=== PATIENT | female | born 1995 | race Caucasian/White ===

== ENCOUNTER 2023-11-07 08:27 | Outpatient (CLI) | payer OTHER ==
[2023-11-07 12:08] LABS: BASOPHILS % (AUTO) 0.4 %; EOSINOPHILS # (AUTO) 0.1 10^3/uL (0.0-0.7); EOSINOPHILS % (AUTO) 1.2 %; HCT - HEMATOCRIT 43.7 % (37.0-47.0); HGB - HEMOGLOBIN 14.1 g/dL (12.0-16.0); LYMPHOCYTES % (AUTO) 39.7 %; MEAN CORPUSCULAR HEMOGLOBIN 30.3 pg (27.0-31.0); MEAN CORPUSCULAR HGB CONC 32.3 g/dL (32.0-36.0); MEAN CORPUSCULAR VOLUME 93.8 fL (81.0-99.0); MEAN PLATELET VOLUME 11.1 fL (7.9-10.8); MONOCYTES # (AUTO) 0.3 10^3/uL (0.0-1.0); MONOCYTES % (AUTO) 5.4 %; NEUTROPHILS # (AUTO) 2.7 10^3/uL (1.5-6.6); NEUTROPHILS % (AUTO) 52.9 %; PLT - PLATELET COUNT 240 10^3/uL (130-450); RED BLOOD COUNT 4.66 10^6/uL (4.20-5.40); RED CELL DISTRIBUTION WIDTH 13.1 % (12.0-15.0)
[2023-11-07 12:29] LABS: ALBUMIN 4.3 g/dL (3.2-5.5); ALBUMIN/GLOBULIN RATIO 1.7 (1.0-2.2); ALKALINE PHOSPHATASE 39 IU/L (42-121); ALT ALANINE AMINOTRANSFERASE 16 IU/L (10-60); AST ASPARTATE AMINOTRANSFERASE 19 IU/L (10-42); BILIRUBIN,TOTAL 0.4 mg/dL (0.2-1.0); BUN - BLOOD UREA NITROGEN 10 mg/dL (6-20); CALCIUM 9.5 mg/dL (8.5-10.3); CARBON DIOXIDE - CO2 32 mmol/L (21-32); CHLORIDE 102 mmol/L (101-111); CHOL/HDL RATIO 2.9 (<4.4); CHOLESTEROL 199 mg/dL; CREATININE 0.6 mg/dL (0.6-1.3); GFR - MDRD 118 (>89); GLUCOSE 85 mg/dL (74-104); HDL CHOLESTEROL 68 mg/dL; LDL CHOLESTEROL,CALCULATED 105 mg/dL; LDL/HDL RATIO 1.5 (<4.4); POTASSIUM 4.1 mmol/L (3.5-4.5); SODIUM 138 mmol/L (135-145); TOTAL PROTEIN 6.9 g/dL (6.4-8.9); TRIGLYCERIDES 129 mg/dL; VLDL CHOLESTEROL 26 mg/dL
[2023-11-07 12:36] LABS: ESTIMATED AVERAGE GLUCOSE 85 mg/dL (70-100); HEMOGLOBIN A1c% 4.6 % (4.27-6.07)
[2023-11-07 12:39] LABS: THYROID STIMULATING HORMONE 2.11 uIU/mL (0.34-5.60)
== END 2023-11-07 08:28 | disposition home or self-care (01) ==
LOC: LAB.N 08:27
DX: Z00.00 Encounter for general adult medical examination without abnormal findings (principal)
CPT/HCPCS: 36415; 80053; 80061; 82306; 83036; 83721; 84443; 85025

== ENCOUNTER 2023-11-19 08:04 | Outpatient (CLI) | payer OTHER ==
--- NOTE | 2023-11-20 22:20 | Ultrasound Report ---
PROCEDURE: Abdomen Complete INDICATIONS: ABD PAIN TECHNIQUE: Ultrasound of the abdomen was obtained. COMPARISON: None. FINDINGS: Liver: Unremarkable hepatic echotexture without focal mass lesion Gallbladder: Sonolucent without cholelithiasis or gallbladder wall thickening. Common bile duct: 4.2 mm Pancreas: Visualized portions of the pancreas are within normal limits Spleen: Spleen is normal in size and homogeneous in echotexture. Kidneys: Kidneys are normal in size and echotexture. No hydronephrosis or renal calculi. No solid masses. Aorta: Visualized aorta is unremarkable without aneurysm. Iliacs: Proximal common iliac arteries are unremarkable. IVC: Intrahepatic inferior vena cava is patent. Other: No free abdominal fluid. IMPRESSION: Unremarkable ultrasound of the abdomen Reviewed by: Aaron Hirsch MD on 11/20/2023 9:18 PM [facility] Approved by: Aaron Hirsch MD on 11/20/2023 9:18 PM [facility] Station ID: [id number]
== END 2023-11-19 08:05 | disposition home or self-care (01) ==
LOC: DI 08:04
DX: K59.09 Other constipation (principal); R10.9 Unspecified abdominal pain

== ENCOUNTER 2023-12-06 10:38 | Outpatient (CLI) | payer OTHER ==
--- NOTE | 2023-12-06 14:30 | XRAY Report ---
PROCEDURE: Chest 2V INDICATIONS: PRE-OP TECHNIQUE: 2 views of the chest were acquired. COMPARISON: 09/25/2023. FINDINGS: Surgical changes and devices: None. Lungs and pleura: No pleural effusions or pneumothorax. Lungs are clear. Mediastinum: Mediastinal contours appear normal. Heart size is normal. Bones and chest wall: No suspicious bony lesions. Overlying soft tissues appear unremarkable. IMPRESSION: No acute cardiopulmonary process. Reviewed by: Calvin Wade MD on 12/06/2023 2:28 PM PDT Approved by: Calvin Wade MD on 12/06/2023 2:28 PM PDT Station ID: [id number]
== END 2023-12-06 10:39 | disposition home or self-care (01) ==
LOC: DI.N 10:38
DX: Z01.818 Encounter for other preprocedural examination (principal)

== ENCOUNTER 2025-02-28 01:25 | Inpatient (IN) ==
[2025-02-28 02:08] LABS: RUPTURE OF MEMBRANES PLUS POSITIVE (NEGATIVE)
[2025-02-28] MEDS ORDERED: ceFAZolin (2G) 2 GM in SODIUM CHLORIDE 0.9% MINIBAG 100 ML IV ONE (02:45)
[2025-02-28] MEDS ORDERED: AZITHROMYCIN INJ 500 MG in SODIUM CHLORIDE 0.9% 250 ML IV ONE (02:45)
--- NOTE | 2025-02-28 02:56 | HISTORY & PHYSICAL EXAMINATION ---
Admit History Visit Reason Visit Reason: Membranes rupture : 4 Parity: 0 Care: positive [facility] Risk/History: positive None Smoking Status: Never smoker Mother's Labs Mother's Blood Type: positive A Mother's RH: positive Positive GBS: positive Group B Step Negative Rubella Status: positive Immune Other Maternal History Other Maternal History: Fabiana is a 29 yo , who presented to [facility] triage early this morning with leakage of clear fluid since 2025, soaking through pads. Nitrazine and ROM Plus were positive, confirming rupture. She is known to be complete breech and has declined version. She has also had one mild-range blood pressure, not yet meeting criteria for gestational HTN or preE. Triage blood pressure was 140/95 with repeat reading still with systolic > 90. She has had no headache, visual changes, or abdominal pain. She also denies contractions, vaginal bleeding, or decreased movements. Specific Issues/Plans LMP: 06/12/2024 KHANH by LMP: 03/19/2024, sure, charted, menses irregular but logged dates of intercourse. US: bedside 08/01/24 6w3d KHANH 03/24/25 US: 08/25/24 9w6d KHANH 03/24/25 Final KHANH: 03/19/25 excessive weight gain 36.5 pounds at 28 weeks. 53 pounds at 35 wks. Says she is eating well and exercising. abnormal glucose 145. will do CGM profiling instead of 3 hr declines vaccines. Breech at 34+5 wks. Discussed ECV. Reassess at 36 wks. thinking she wants primary c section 03/13 or 03/17. Pre- Weight: 183 BMI: 31 Blood type: A+ Antibody Screen: neg CBC: H/H/PLT 12.2/36.7 263 RUB: immune VZV: immune HBsAg: neg HepC: NR RPR: NR HIV: NR Flu: declined Covid: declined PAP: 2023 normal GC/CT: neg HSV: denies in self and partner Genetic testing: NIPT- negative AFP- neg Early Glucola: FLU AND COVID- DECLINED FAS: Placenta: posterior w/o previa Cord: 3VC MARLI: wnl EFW: 396g, 16% 50gm OGCT: 145 3HR GTT: WEARING CGM and pretty normal once she got the hang of it. TDAP: declined Breast Pump: given 12/30 RSV: DECLINED Antibody screen: CBC:H/H/PLT12.3/37.5/256 RPR: NR GBS: negative Delivery plan: MOD: PP BC: Considering vasectomy; declines hormonal control, fears it may have contributed to PCOS HPI Current : Vital Signs Temperature 36.4 C L 02/28/25 01:37 Pulse Rate 99 02/28/25 01:37 Respiratory Rate 18 02/28/25 01:37 Blood Pressure 140/95 H 02/28/25 01:37 Meds/Allgy Home Medications Ambulatory Orders Medication Instructions Recorded Confirmed vitamins no.154-ferrous 1 tab PO .daily #90 t abs 07/22/24 02/24/25 fumarate 27 mg-folic acid 1 mg tablet cetirizine 10 mg tablet 10 mg PO QDAY PRN allergy sy mptoms 11/04/24 02/24/25 #90 tabs fluticasone propionate 50 2 spray intranasal QDAY PRN 11/04/24 02/24/25 mcg/actuation nasal allergy symptoms #1 ea spray,suspension (Flonase Allergy Relief) Allergies Allergies Allergy/AdvReac Type Severity Reaction Status Date / Time No Known Drug Allergies Allergy Verified 02/24/25 15:09 [facility] Active Problems All Active Problems (Updated 02/28/25 @ 03:33 by Leta Valles MD) 37 weeks gestation of (Acute) Rupture of membranes with delay of delivery (Acute) Gestational hypertension affecting first (Acute) Elevated blood pressure affecting , antepartum (Acute) Excessive weight gain during in third trimester (Acute) Glucose intolerance (impaired glucose tolerance) (Acute) Complete breech presentation (Acute) Environmental allergies (Acute) Back pain with left-sided sciatica (Acute) Supervision of normal (Acute) Obesity (BMI 30.0-34.9) (Acute) Seasonal allergies (Acute) PCOS (polycystic ovarian syndrome) (Acute) Medical History Medical History (Updated 02/28/25 @ 03:33 by Leta Valles MD) History of multiple miscarriages Acid reflux Family history of breast cancer Migraines Asthma IBS (irritable bowel syndrome) Anxiety Surgical History Surgical History (Updated 08/18/24 @ 13:43 by Kathryn Choe RN) H/O breast augmentation History of liposuction of abdomen 2019 History of repair of ACL left ACL 2019 Family History Family History (Updated 08/18/24 @ 13:44 by Kathryn Choe RN) Mother Breast cancer High blood pressure Arthritis Maternal grandmother Breast cancer Diabetes Father High blood pressure Parkinsons disease Paternal grandmother Diabetes Other TIA (transient ischemic attack) Social History Social History (Updated 12/15/24 @ 15:21 by Wanda Hadley MD) Smoking Status: Never smoker Second hand tobacco smoke exposure: No Do you dip or chew tobacco?: No Do you vape?: No Living arrangement: At home Marital Status: Living Condition: With spouse/s.o. Support Person: Yes Physical Activity: Walking Level: Independent Do you feel safe in your home environment?: Yes History of physical, verbal, emotional, or financial abuse?: No ETOH Use: None Substance Use: denies use Review of Systems Status of ROS: 10 or more systems reviewed and unremarkable except as noted in history and below Physical Abdominal Exam Vital Signs: Temp Pulse Resp BP 36.4 C L 99 18 140/95 H 02/28/25 01:37 02/28/25 01:37 02/28/25 01:37 02/28/25 01:37 General: Awake and alert, no acute distress Lungs: Clear to auscultation bilaterally Heart: Reg rate, rhythm Abd: Gravid, nontender Cvx: Not examined Ext: Warm and well-perfused, DTR's 2+ with 1 beat clonus, edema 1+ bilateral Contraction Frequency (min/apart): Absent Monitoring Heart Rate Baseline: 135-140 Strip Review: positive Category I (Rare variable decels noted; + accels; mod variability - overall cat 1) Presentation Presentation: positive Breech Vaginal Exam Membranes: positive Membranes ruptured Speculum Exam Speculum Exam Performed: positive No Findings: positive Gross leak, Nitrazine and Other (ROM Plus positive) Other Notes Labor Progress Note/Additional Text: Limited bedside US performed, confirming presentation still breech Plan for Labor Plan For Labor I expect patient to be DC'd or transferred within 96 hours.: Yes Conclusion/Plan Problem List (1) Rupture of membranes with delay of delivery: Plan: Assessment: (1) Term rupture of membranes (clear) without onset of labor (2) Complete breech presentation (3) Gestational HTN, currently without severe features (4) at 37+2 weeks (5) Reassuring status with cat 1 FHT Plan: - Admit to [facility]BP for delivery via 1' - Plan for approx 0730. Team notified. Will proceed to delivery sooner if entering labor, worsening BP's, or EFM concerns. - Obtain preop CBC, CMP, and type and screen - plan and delivery preference reviewed: Pt desires delayed cord clamping, declines meds, and wishes to keep placenta - Discussed procedure, expectations, risks, and postop care. Risks discussed include, but not limited to, bleeding, infection, injury to internal organs, and anesthesia risks. Discussed possible need for blood transfusion if heavy bleeding or symptomatic anemia occurs. Consent form reviewed and signed. - Preop antibiotics: Ancef 2 mg, Azithro 500 mg IV - VTE prophy: SCDs in OR and (2) Complete breech presentation: Qualifiers: Fetus number: single or unspecified fetus Qualified Code(s): O32.1XX0 - Maternal care for breech presentation, not applicable or unspecified (3) Gestational hypertension affecting first : (4) 37 weeks gestation of : Lab Results Lab results reviewed: Yes
[2025-02-28 03:58] LABS: HCT - HEMATOCRIT 36.0 % (37.0-47.0); HGB - HEMOGLOBIN 12.5 g/dL (12.0-16.0); MEAN PLATELET VOLUME 11.2 fL (7.9-10.8); NRBC ABSOLUTE COUNT (AUTO) 0.00 x10^3/uL; NUCLEATED RED BLOOD CELLS AUTO 0.0 /100WBC; PLT - PLATELET COUNT 216 10^3/uL (130-450); RED CELL DISTRIBUTION WIDTH 13.1 % (12.0-15.0)
[2025-02-28 04:14] LABS: ALT ALANINE AMINOTRANSFERASE 6.0 IU/L (10-60); AST ASPARTATE AMINOTRANSFERASE 11.0 IU/L (10-42); BUN - BLOOD UREA NITROGEN 11.0 mg/dL (6-20); CARBON DIOXIDE - CO2 19.0 mmol/L (21-32); CREATININE 0.6 mg/dL (0.6-1.3); GFR - MDRD 117.0 (>89)
[2025-02-28] MEDS: LACTATED RINGERS 1,000 ML IV SCH (04:20)
[2025-02-28] MEDS ORDERED: CITRIC ACID/SODIUM CITRATE 15 ML UDC PO ONE (06:31)
[2025-02-28] MEDS: CITRIC ACID/SODIUM CITRATE 15 ML UDC PO ONE (07:07)
[2025-02-28] MEDS ORDERED: fentaNYL 100 MCG/2 ML VIAL ONE (07:08)
[2025-02-28] MEDS ORDERED: MORPHINE PF 5 MG/10 ML VIAL ONE (07:08)
[2025-02-28] MEDS ORDERED: CARBOPROST TROMETHAMINE 250 MCG/ML VIAL IM ONE (07:11)
[2025-02-28] MEDS ORDERED: METHYLERGONOVINE 0.2 MG/ML VIAL ONE (07:11)
[2025-02-28] MEDS ORDERED: PHENYLEPHRINE 10 MG/ML VIAL ONE (07:12)
[2025-02-28] MEDS ORDERED: fentaNYL 100 MCG/2 ML VIAL IT ONE (07:33)
[2025-02-28] MEDS ORDERED: MORPHINE PF 5 MG/10 ML VIAL IT ONE (07:33)
[2025-02-28] MEDS ORDERED: OXYTOCIN 10 UNIT/ML VIAL ONE (08:16)
[2025-02-28] MEDS ORDERED: NALOXONE 0.4 MG/ML VIAL IVP PRN ×2 (08:30→08:59)
[2025-02-28] MEDS ORDERED: HYDROmorphone 0.5 MG/0.5 ML SYRINGE IVP PRN (08:30)
[2025-02-28] MEDS ORDERED: ATROPINE ABBOJECT 1 MG/10 ML SYRINGE IVP PRN (08:30)
[2025-02-28] MEDS ORDERED: fentaNYL 100 MCG/2 ML VIAL IVP PRN (08:30)
[2025-02-28] MEDS ORDERED: ONDANSETRON 4 MG/2 ML VIAL IVP PRN (08:30)
[2025-02-28] MEDS ORDERED: MORPHINE 2 MG/ML CARPUJECT IVP PRN (08:30)
--- NOTE | 2025-02-28 08:30 | ANESTHESIA PROCEDURE NOTE ---
Pre-Anesthesia VS, & Labs Diagnosis Surgical Diagnosis:: Breech presentation, ruptured membranes Procedure Procedure: primary c/s Vitals Vital Signs: Temp Pulse Resp BP Pulse Ox 36.9 C 68 16 146/87 H 98 02/28/25 04:44 02/28/25 04:44 02/28/25 04:44 02/28/25 04:44 02/28/25 04:44 NPO NPO: >8 hours Is Patient ?: Yes Lab Results Current Lab Results: Laboratory Tests 02/28/25 03:50: WBC 8.9, RBC 4.01 L, Hgb 12.5, Hct 36.0 L, MCV 89.8, MCH 31.2 H, MCHC 34.7, RDW 13.1, Plt Count 216, MPV 11.2 H, Neut # (Auto) 5.7, Lymph # (Auto) 2.5, [place] # (Auto) 0.5, Eos # (Auto) 0.1, Baso # (Auto) 0.0, Absolute Nucleated RBC 0.00, Nucleated RBC % 0.0, Sodium 136, Potassium 4.0, Chloride 109, Carbon Dioxide 19 L, Anion Gap 8.0, BUN 11, Creatinine 0.6, Estimated GFR (MDRD) 117, Glucose 91, Calcium 9.0, Total Bilirubin 0.2, AST 11, ALT 6 L, A lkaline Phosphatase 230 H, Total Protein 5.7 L, Albumin 3.4, Globulin 2.3, Albumin/Globulin Ratio 1.5, Blood Type A POSITIVE, Antibody Screen NEGATIVE Lab results reviewed: Yes 02/28/25 03:50 02/28/25 03:50 Meds/Allgy Home Medications Ambulatory Orders Medication Instructions Recorded Confirmed vitamins no.154-ferrous 1 tab PO .daily #90 t abs 07/22/24 02/24/25 fumarate 27 mg-folic acid 1 mg tablet cetirizine 10 mg tablet 10 mg PO QDAY PRN allergy sy mptoms 11/04/24 02/24/25 #90 tabs fluticasone propionate 50 2 spray intranasal QDAY PRN 11/04/24 02/24/25 mcg/actuation nasal allergy symptoms #1 ea spray,suspension (Flonase Allergy Relief) Allergies Allergies Allergy/AdvReac Type Severity Reaction Status Date / Time No Known Drug Allergies Allergy Verified 02/24/25 15:09 [facility] Active Problems All Active Problems 37 weeks gestation of (Acute) Rupture of membranes with delay of delivery (Acute) Gestational hypertension affecting first (Acute) Elevated blood pressure affecting , antepartum (Acute) Excessive weight gain during in third trimester (Acute) Glucose intolerance (impaired glucose tolerance) (Acute) Complete breech presentation (Acute) Environmental allergies (Acute) Back pain with left-sided sciatica (Acute) Supervision of normal (Acute) Obesity (BMI 30.0-34.9) (Acute) Seasonal allergies (Acute) PCOS (polycystic ovarian syndrome) (Acute) Medical History Medical History History of multiple miscarriages Acid reflux Family history of breast cancer Migraines Asthma IBS (irritable bowel syndrome) Anxiety Surgical History Surgical History H/O breast augmentation History of liposuction of abdomen 2019 History of repair of ACL left ACL 2019 Family History Family History (Updated 08/18/24 @ 13:44 by Kathryn Choe RN) Mother Breast cancer High blood pressure Arthritis Maternal grandmother Breast cancer Diabetes Father High blood pressure Parkinsons disease Paternal grandmother Diabetes Other TIA (transient ischemic attack) Social History Social History (Updated 12/15/24 @ 15:21 by Wanda Hadley MD) Smoking Status: Never smoker Second hand tobacco smoke exposure: No Do you dip or chew tobacco?: No Do you vape?: No Living arrangement: At home Marital Status: Living Condition: With spouse/s.o. Support Person: Yes Physical Activity: Walking Level: Independent Do you feel safe in your home environment?: Yes History of physical, verbal, emotional, or financial abuse?: No ETOH Use: None Substance Use: denies use POLST POLST CPR Status: Attempt Resuscitation (CPR) Level of Medical Intervention: Full Treatment Anesthesia Exam (Expanded) Exam General: Alert, Oriented x3 and Cooperative Dental: WNL Mouth Openin Fingerbreadth Neck Mobility: Normal Mallampati classification: II Thyromental Distance: 4-6 cm Exam Exam Vital Signs: Vital Signs x48h Temp Pulse Pulse Resp BP BP Pulse Ox 02/28/25 04:44 36.9 C 68 16 146/87 H 98 02/28/25 02:20 135/97 H 02/28/25 01:37 36.4 C L 99 18 140/95 H Plan Plan Anesthesia Type: Spinal Consent for Procedure(s) Verified and Reviewed: Yes Code Status: Attempt Resuscitation ASA Classification ASA classification: 2-Mild systemic disease Is this case an emergency?: No
[2025-02-28] MEDS ORDERED: KETOROLAC 30 MG/ML VIAL ONE (08:32)
[2025-02-28] MEDS ORDERED: SIMETHICONE CHEW 80 MG TABLET PO PRN (08:59)
[2025-02-28] MEDS ORDERED: hydrALAZINE INJ 20 MG/ML VIAL IVP PRN ×2 (08:59)
[2025-02-28] MEDS ORDERED: LABETALOL 20 MG/4 ML SYRINGE IVP PRN ×3 (08:59)
[2025-02-28] MEDS ORDERED: OXYTOCIN/SODIUM CHLORIDE 500 ML IV PRN (08:59)
--- NOTE | 2025-02-28 08:59 | PHARMACY PROGRESS NOTE ---
Best Possible Medication History Admit Date and Time: 02/28/25 0245 Home Medications Medication Instructions Recorded Confirmed Type cetirizine 10 mg tablet 10 mg PO QDAY PRN allergy sy mptoms 11/04/24 02/28/25 Rx #90 tabs fluticasone propionate 50 2 spray intranasal QDAY PRN 11/04/24 02/28/25 Rx mcg/actuation nasal allergy symptoms #1 ea spray,suspension (Flonase Allergy Relief) vitamins no.154-ferrous 1 tab PO DAILY 02/28/25 History fumarate 27 mg-folic acid 1 mg tablet Processed by: Pharmacy Medications reviewed in ED?: No Medication History completed: Yes [facility] Statement: As the person ultimately responsible for medication therapy, providers are able to order a medication from an existing home medication list in [facility] via the "Reconcile Routine" prior to Confirmation of that medication by linux support engineer. Such practice is discouraged except when the physician, in their clinical judgment, deems that a medical need exists for a medication without regard to previous use.
[2025-02-28] MEDS ORDERED: LACTATED RINGERS 1,000 ML IV SCH (09:00)
--- NOTE | 2025-02-28 09:05 | OPERATIVE REPORT ---
Operative Report General Admit Date: 02/28/25 Procedure Data: Operation Date: 02/28/25 07:00 Proposed Procedures p Section(Not Applicable) - Leta Valles MD Anesthesia Type Spinal Case Times Into Recovery: 02/28/25 08:58 Other Other Information/Narrative: Preoperative Diagnosis: - Complete breech presentation - Rupture of membranes prior to labor onset - Gestational hypertension - at 37 weeks gestation Postoperative Diagnosis: - Same as above now s/p primary low transverse Procedure: Primary low-transverse with two-layer hysterotomy closure Surgeon: Dr. Leta Valles Parts Consultant: Jocelyn Larry CNM Anesthesia: Spinal w/ Duramorph Qualitative Blood Loss: 330 ml IV Fluids: 900 ml Urine Output: 25 ml Medications: Pitocin bolus Specimen: None Indications: Patient is a 29 yo at 37+2 wks who presented to [facility] with rupture of membranes. Baby was known to be complete breech, and she declined version attempt. Breech was confirmed on the day of admission, and delivery recommended at this time. Additionally, she had had a single elevlated blood pr essure as an outpatient. Triage and admission blood pressure were elevated consistent with a diagnosis of gestational HTN. She had no severe features. Surgical procedure, expectations, and risks were discussed, and surgical consent form reviewed and signed. Findings: - No adhesions present - Viable male infant delivered from complete breech presentation. No nuchal cord was present. APGARS were 7 at one minute and 9 at five minutes. weight was 3175 gm. - Placenta was expressed, and the uterine cavity swept. The placenta appeared intact and was given to the parents per their request. - Tubes, ovaries, and uterus were overall normal in appearance - Uterine tone was good after start of Pitocin. Operative Technique: The patient was taken to the operating room where epidural was already in place and had been bolused to surgical level by Anesthesia. Berger catheter had already been inserted. The abdomen was prepped and draped in sterile fashion, and surgical Time Out performed. After confirming adequate anesthesia with an Allis clamp, a Pfannenstiel incision was created sharply 3 cm above the suprapubic bone. The subcutaneous tissue was incised, then the fascia was sharply incised at the midline and incision extended laterally bluntly. The superior rectus fascia was grasped with Luke clamps at the midline and tented up while the rectus muscle was d issected off posteriorly bluntly and with cautery. The same was then performed at the inferior rectus fascia, using blunt and sharp technique. The muscles were bluntly . A clear window of the anterior peritoneum was identified and entered bluntly. This incision was then extended with gentle stretch. Donny retractor was placed. A bladder flap was created, then the lower uterine segment was incised in low transverse fashion. The incision was bluntly enlarged in a cranial-caudal direction. Clear amniotic fluid was noted. The infants feet were grasped and delivered through the incision. The sacrum was rotated to anterior. Once that abdomen was delivered, the baby was rotated to sweep the arms across the chest. The head then delivered with additional uterine fundus pressure and head flexion ([id number] and gentle pressure at the occiput). The baby had initial poor tone and respiratory effort. He was dried and stimulated, and tone/effort improved. Umbilical cord milking was performed, then the cord clamped and cut at 1 minute, and baby taken to the warmer. There, he continued to responded well to basic resuscitative measures. Cord blood was obtained, then the placenta delivered by expression and uterine massage. Uterine tone was addressed with medications as noted above. The uterus was repaired in situ: the hysterotomy was closed with a running, locked suture of 0 Chromic followed by an imbricating suture of 0 Chromic. A figure of eight suture was placed at the midline to achieve hemostasis. The peritoneal gutters were wiped, and the uterine incision re-examined and noted to be hemostatic. The peritoneum and muscles were reapproximated with running non-locked suture of 2-0 Vicryl. The rectus muscle was then examined and hemostatic. The rectus fascia was closed with a running non-locked suture of 0 Vicryl. The subcutaneous tissue was irrigated then reapproximated with interrupted 2-0 Vicryl. The skin was then closed in a subcuticular fashion using 4-0 Monocryl. Mastisol, steri-strips, and dressing were then applied. Sponge, lap, and needle count were completed and correct. The patient tolerated the procedure well, overall. She was subsequently moved to the recovery room in stable condition. Parts Consultant Attestation: In this non-[facility], a assistant store manager (named above) was needed to perform assistant surveyor duties. The multimedia assistant was critical with retraction of tissue, cutting suture, gently stretching the peritoneum and abdominal wall, applying pressure on the upper abdomen and uterus to deliver the baby, performing initial resuscitative steps for the baby on the maternal abdomen, and assisting with closure of the surgical layers and skin.
[2025-02-28] MEDS: ACETAMINOPHEN 500 MG TABLET PO SCH (11:13)
[2025-02-28] MEDS: DOCUSATE SODIUM 100 MG CAPSULE PO SCH (11:14)
--- NOTE | 2025-02-28 12:19 | ANESTHESIA POST OP EVALUATION ---
Anesthesia Post Eval Post Anesthesia Eval Vitals: Last Vital Signs Temp 36.9 C 02/28/25 11:00 Pulse 82 02/28/25 11:00 Resp 17 02/28/25 11:00 BP 126/88 02/28/25 11:00 Pulse Ox 98 02/28/25 11:00 CV Function Including HR & BP: Stable Pain Control: Satisfactory Nausea & Vomiting: Negative Mental Status: Baseline Respiratory Status: Airway Patent Hydration Status: Satisfactory Anesthesia Complications: None
[2025-02-28] MEDS ORDERED: NALBUPHINE 10 MG/ML AMP IVP PRN (12:30)
[2025-02-28] MEDS: KETOROLAC 30 MG/ML VIAL IVP SCH (15:00)
[2025-03-01 05:36] LABS: HCT - HEMATOCRIT 30.1 % (37.0-47.0); HGB - HEMOGLOBIN 10.4 g/dL (12.0-16.0); MEAN PLATELET VOLUME 10.9 fL (7.9-10.8); PLT - PLATELET COUNT 172.0 10^3/uL (130-450); RED CELL DISTRIBUTION WIDTH 13.5 % (12.0-15.0)
[2025-03-01 05:48] LABS: ALT ALANINE AMINOTRANSFERASE 5.0 IU/L (10-60); AST ASPARTATE AMINOTRANSFERASE 14.0 IU/L (10-42); BUN - BLOOD UREA NITROGEN 12.0 mg/dL (6-20); CARBON DIOXIDE - CO2 23.0 mmol/L (21-32); CREATININE 0.7 mg/dL (0.6-1.3); GFR - MDRD 98.0 (>89)
[2025-03-01] MEDS: IBUPROFEN 600 MG TABLET PO SCH (11:01)
[2025-03-01] MEDS: CETIRIZINE 10 MG TABLET PO SCH (17:31)
[2025-03-01] MEDS: oxyCODONE 5 MG TABLET PO PRN (19:50)
--- NOTE | 2025-03-01 21:37 | PROVIDER PROGRESS NOTE ---
Subjective Prog Note Date Prog Note Date: 03/01/25 Prog Note Time: 15:30 Subjective Pt reports feeling: Improved Subjective: POD #1 s/p uncomplicated primary for breech - Patient is feeling well. She notes minimal increase in discomfort as Duramorph has worn off. She has been up and ambulating, tolerating a regular diet, passing flatus, voiding freely, and controlling pain with oral pain meds. Lochia has decreased. Her Rg is at the bedside. She is trying to breastfeed and is also pumping to help consolidate colostrum for him. She is starting to get a sinus headache and requests start of cetirizine, which she usually takes to help manage her allergies. Current Medications Current Medications Current Medications: Current Medications Generic Name Dose Route Start Last Admin Trade Name Freq PRN Reason Stop Dose Admin Acetaminophen 1,000 mg 02/28/25 09:00 03/01/25 13:28 Acetaminophen 500 Mg Tablet PO 1,000 mg Q8H BERNA Administration Cetirizine HCl 10 mg 03/01/25 16:00 03/01/25 17:31 Cetirizine 10 Mg Tablet PO 10 mg DAILY BERNA Administration Docusate Sodium 200 mg 02/28/25 09:00 03/01/25 11:01 Docusate Sodium 100 Mg Capsule PO 200 mg BID BERNA Administration Hydralazine HCl 10 mg 02/28/25 08:59 Hydralazine Inj 20 Mg/Ml Vial IVP .ONCE PRN SBP> or= 160 OR DBP> or= 110 Protocol Hydralazine HCl 5 - 20 mg 02/28/25 08:59 Hydralazine Inj 20 Mg/Ml Vial IVP Q20M PRN SBP> or= 160 OR DBP> or= 110 Protocol Oxytocin/Sodium Chloride 500 mls @ 999 mls/hr 02/28/25 08:59 Pitocin/Sodium Chloride IV PRN PRN POST- HEMORR PREVENTION Protocol 999 MILLIUNIT/MIN Ibuprofen 600 mg 03/01/25 09:00 03/01/25 17:28 Ibuprofen 600 Mg Tablet PO 600 mg Q6H BERNA Administration Labetalol HCl 20 - 40 mg 02/28/25 08:59 Labetalol 20 Mg/4 Ml Syringe IVP Q10M PRN SBP> or= 160 OR DBP> or= 110 Protocol Labetalol HCl 20 mg 02/28/25 08:59 Labetalol 20 Mg/4 Ml Syringe IVP .ONCE PRN SBP> or= 160 OR DBP> or= 110 Protocol Labetalol HCl 20 - 80 mg 02/28/25 08:59 Labetalol 20 Mg/4 Ml Syringe IVP Q10M PRN SBP> or= 160 OR DBP> or= 110 Protocol Naloxone HCl 0.4 mg 02/28/25 08:59 Naloxone 0.4 Mg/Ml Vial IVP .ONCE PRN Opioid overdose Nifedipine 10 - 20 mg 02/28/25 08:59 Nifedipine 10 Mg Capsule PO Q20M PRN SBP> or= 160 OR DBP> or= 110 Protocol Oxycodone HCl 5 mg 02/28/25 08:59 03/01/25 19:50 Oxycodone 5 Mg Tablet PO 5 mg Q4HR PRN Administration Severe Pain 6 -10 Simethicone 80 mg 02/28/25 08:59 Simethicone Chew 80 Mg Tablet PO TID PRN Gas Objective Vital Signs/Intake & Output Reviewed Vital Signs: Yes Vital Signs: Vital Signs x48h Temp Pulse Resp BP Pulse Ox 03/01/25 18:30 37 C 90 16 121/74 99 BPs have been normal since delivery. No severe HTN since admission. Intake & Output: Intake & Output 02/26/25 02/27/25 02/28/25 03/01/25 23:59 23:59 23:59 23:59 Intake Total 900 / 900 Output Total 1295 / 1295 940 / 940 Balance -395 / -395 -940 / -940 Weight (kg) 106.594 kg General: Awake and alert; no acute distress Lungs: Clear to ausculation bilaterally. No wheezes or crackles. Heart: Reg rate and rhythm Abd: Rare bowel sounds present, appropriately tender to palpation. Inc: Dressing removed; skin edges approximating well; steri-strips dry and intact. Ext: Warm and well-perfused, 2+ edema Lab Results 03/01/25 05:21 03/01/25 05:21 Other Labs: Lab Results x24hrs 03/01/25 Range/Units 05:21 WBC 8.1 (4.8-10.8) x10^3/uL RBC 3.29 L (4.20-5.40) 10^6/uL Hgb 10.4 L (12.0-16.0) g/dL Hct 30.1 L (37.0-47.0) % MCV 91.5 (81.0-99.0) fL MCH 31.6 H (27.0-31.0) pg MCHC 34.6 (32.0-36.0) g/dL RDW 13.5 (12.0-15.0) % Plt Count 172 (130-450) 10^3/uL MPV 10.9 H (7.9-10.8) fL Sodium 133 L (135-145) mmol/L Potassium 4.4 (3.5-4.5) mmol/L Chloride 105 (101-111) mmol/L Carbon Dioxide 23 (21-32) mmol/L Anion Gap 5.0 L (6-13) BUN 12 (6-20) mg/dL Creatinine 0.7 (0.6-1.3) mg/dL Estimated GFR (MDRD) 98 (>89) Glucose 80 (74-104) mg/dL Calcium 8.6 (8.5-10.3) mg/dL Total Bilirubin 0.3 (0.2-1.0) mg/dL AST 14 (10-42) IU/L ALT 5 L (10-60) IU/L Alkaline Phosphatase 165 H (42-121) IU/L Total Protein 4.8 L (6.4-8.9) g/dL Albumin 3.0 L (3.2-5.5) g/dL Globulin 1.8 L (2.1-4.2) g/dL Albumin/Globulin Ratio 1.7 (1.0-2.2) Assessment/Plan Problem List (1) care following delivery: Impression: POD #1 s/p 1' LTCS for breech after presenting at 37+2 wks with rupture of membranes as well as new dx of gestational HTN. Doing well. - Cont routine postop care: encourage ambulation and IS use. - Cont with scheduled tylenol/motring + oxycodone for pain. - Cont support. - Discussed anticipated discharge home tomorrow. Briefly reviewed discharge precautions and limitations. (2) Gestational hypertension affecting first : Impression: Normotensive since delivery, and preE labs nml this normal. No indication for start of antihypertensive at this time.
[2025-03-02 02:30] VITALS: O2SAT 98
--- NOTE | 2025-03-02 10:30 | Discharge Summary ---
Discharge Summary Admit Date: 02/28/25 Discharge Date: 03/02/25 Discharging Provider: Valeriy Vanessa MD DIAGNOSES Admission Diagnoses: 37 weeks gestation Prelabor rupture of membranes Breech presentation Gestational hypertension Discharge Diagnoses with Status of Each Condition: Same Delivery of live vaughn Status post primary low-transverse section HPI History of Present Illness: Subjective Patient doing well. Lochia appropriate. Denies heavy bleeding. Ambulating. Pelvic and abdominal pain well-controlled. Tolerating oral intake. Diet: Regular. Voiding without difficulty. Passing flatus. Patient is bonding with baby in room Breast feeding going well. Denies feeling lightheaded, dizzy or excessively fatigued. Objective General: Alert, oriented, no apparent distress. Cardiovascular: Regular rate. Regular rhythm. Lungs: No increased work of breathing. Abdomen: Uterus firm. Below umbilicus. No guarding or rebound. Extremities: No pain on palpation. No cords palpated. Distal pulses intact. Incision: Clean, dry, and intact. HOSPITAL COURSE Hospital Course: Patient is admitted at 37 weeks gestation for rupture of membranes at term with breech presentation. She was counseled on section given prophylactic antibiotics. section was uncomplicated and course was uneventful. She was desiring to go home on postoperative day 2. She and were discharged together. Patient was counseled on postoperative pain, care, depression prior to discharge. ALLERGIES Allergies Allergy/AdvReac Type Severity Reaction Status Date / Time No Known Drug Allergies Allergy Verified 02/24/25 15:09 MEDICATIONS Ambulatory Orders Medication Instructions Recorded Confirmed cetirizine 10 mg tablet 10 mg PO QDAY PRN allergy sy mptoms 11/04/24 02/28/25 #90 tabs fluticasone propionate 50 2 spray intranasal QDAY PRN 11/04/24 02/28/25 mcg/actuation nasal allergy symptoms #1 ea spray,suspension (Flonase Allergy Relief) vitamins no.154-ferrous 1 tab PO DAILY 02/28/25 fumarate 27 mg-folic acid 1 mg tablet ibuprofen 600 mg tablet 600 mg PO Q6H PRN Pain #30 t abs 03/02/25 oxycodone 5 mg tablet 5 mg PO Q4H PRN Severe Pain #12 03/02/25 tabs PHYSICAL EXAM AT DISCHARGE Vital Signs: Vital Signs x48h Temp Pulse BP 12/22/25 09:45 37.0 C 95 124/76 03/02/25 06:22 37.0 C 91 113/64 LABS 03/01/25 05:21 03/01/25 05:21 FOLLOW UP Follow Up: Follow-up with [facility] in 1 week TIME SPENT Time Spent in Discharge (Minutes): 30 Discharge Plan Discharge Patient Disposition: Home, Self Care Prescriptions: New ibuprofen 600 mg tablet 600 mg PO Q6H PRN (Reason: Pain) Qty: 30 0RF oxycodone 5 mg tablet 5 mg PO Q4H PRN (Reason: Severe Pain) Qty: 12 0RF Continued fluticasone propionate [Flonase Allergy Relief] 50 mcg/actuation spray,suspension 2 spray intranasal QDAY PRN (Reason: allergy symptoms) Qty: 1 12RF Rx Instructions: administer 2 sprays into each nostril once daily as needed cetirizine 10 mg tablet 10 mg PO QDAY PRN (Reason: allergy symptoms) Qty: 90 4RF PNV no.154-iron fumarate-folic 27 mg iron- 1 mg tablet 1 tab PO DAILY Activity Restrictions: Additional Comments Diet: Regular Print Language: Sami Patient Instructions: Depression, Section Dc Follow-up Care: Leta Valles MD [Provider Admit Priv/Credential, Obstetrics/Gynecology] Tsering Nunez ARNP [Primary Care Provider, Family Practice] Vitals documented within 30 minutes of discharge?: Yes
[2025-03-02 13:22] VITALS: BP 110/73; TEMP 98.4
--- NOTE | 2025-03-02 13:34 | Labor Flowsheet ---
Labor Flowsheet Datetime Report Generated by CPN: 03/02/2025 13:33 Datetime: 03/01/2025 12:06 VAGINAL EXAM Membranes Ruptured Date/Time: 02/28/2025 00:01 Membranes Rupture Method: Spontaneous Amniotic Fluid Color: Clear Amniotic Fluid Amount: Small Datetime: 02/28/2025 07:05 I/O Interventions: Up to BR Datetime: 02/28/2025 06:28 Monitor Interventions for FHR: Ultrasound Adjusted Datetime: 02/28/2025 05:59 ASSESSMENT A Monitor Mode: Telemetry FHR Baseline Rate : 125 Variability: Moderate 6-25 bpm Accelerations: 15X15 Decelerations: None Category: Category I Datetime: 02/28/2025 05:06 PATIENT CARE Patient Position/Activity: Left Lateral Datetime: 02/28/2025 02:17 VITAL SIGNS NBP Sys/Mariana/Mean (mmHg): 135 : 97 : 106 Pulse: 88 Datetime: 02/28/2025 01:38 SpO2 (%): 99
== END 2025-03-02 12:50 | disposition home or self-care (01) | DRG 788 ==
LOC: WFO 01:25 → FBP 01:26
PROVIDERS: ADMIT Obstetrics & Gynecology; ATTEND Obstetrics & Gynecology
DX: O13.4 Gestational [pregnancy-induced] hypertension without significant proteinuria, complicating childbirth; O26.03 Excessive weight gain in pregnancy, third trimester; Z3A.37 37 weeks gestation of pregnancy; Z37.0 Single live birth; O99.214 Obesity complicating childbirth; O32.1XX0 Maternal care for breech presentation, not applicable or unspecified